=== PATIENT | male | born 1990 | race Caucasian/White ===

== ENCOUNTER 2017-06-04 14:43 | Emergency (ER) | payer SELFPAY ==
[2017-06-04 15:21] VITALS: BP 122/73; PULSE 87; TEMP 98.7; BMI 26.6
--- NOTE | 2017-06-04 15:26 | PDOC ---
Rapid Medical Evaluation Chief Complaint: Injury Time Seen by Provider: 06/04/17 15:20 Medical Evaluation: Allergies Allergy/AdvReac Type Severity Reaction Status Date / Time No Known Allergies Allergy Verified 06/04/17 15:16 Vital Signs Temp Pulse Resp BP Pulse Ox 98.7 F 87 18 122/73 97 06/04/17 15:16 06/04/17 15:16 06/04/17 15:16 06/04/17 15:16 06/04/17 15:16 06/04/17 15:21 pt c/o : rt 5th digit lacaeration. tdap last year Pt on exam: avulsed finger tip Pt ordered for : finger xray Pt to proceed to the ED Discharge Disposition - Diagnosis Finger injury - Referrals - Patient Instructions - Post Discharge Activity
[2017-06-04] MEDS ORDERED: DIPHTH,PERTUSS(ACELL),TET 0.5 ML DISP.SYRIN IM ONE (16:08)
--- NOTE | 2017-06-04 16:32 | PDOC ---
History of Present Illness - General Chief Complaint: Injury Stated Complaint: LEFT INJURY Time Seen by Provider: 06/04/17 15:20 History Source: Patient Exam Limitations: No Limitations - History of Present Illness Initial Comments: 06/04/17 16:24 crushed finger at work no deformity, has avulsed skin right 5th digit, FROM Occurred: reports: just prior to arrival Past History - Past Medical History Allergies/Adverse Reactions: Allergies Allergy/AdvReac Type Severity Reaction Status Date / Time No Known Allergies Allergy Verified 06/04/17 15:16 Home Medications: Ambulatory Orders NK [No Known Home Medication] 02/24/16 COPD: No - Immunization History Immunization Up to Date: Yes - Suicide/Smoking/Psychosocial Hx Smoking History: Never smoked Hx Alcohol Use: No Drug/Substance Use Hx: No Substance Use Type: None Review of Systems - Review of Systems Able to Perform ROS?: Yes Is the patient limited Turkmen proficient: No Constitutional: No: Symptoms Reported HEENTM: No: Symptoms Reported Respiratory: No: Symptoms reported Cardiac (ROS): No: Symptoms Reported ABD/GI: No: Symptoms Reported *Physical Exam - Vital Signs Last Vital Signs Temp Pulse Resp BP Pulse Ox 98.7 F 87 18 122/73 97 06/04/17 15:16 06/04/17 15:16 06/04/17 15:16 06/04/17 15:16 06/04/17 15:16 - Physical Exam General Appearance: Yes: Nourished, Appropriately Dressed HEENT: positive: EOMI, FAWAD Cardiovascular: positive: Regular Rhythm, Regular Rate Musculoskeletal: positive: Normal Inspection Extremity: positive: Normal Range of Motion, Other (right 5th digit with avulsion to the pad of the finger , nv intact nail is intact FROM ) Integumentary: positive: Normal Color, Dry, Warm Neurologic: positive: Fully Oriented, Alert, Normal Mood/Affect, Normal Response , Motor Strength 5/5 Procedures - Laceration/Wound Repair Right 5th digit Wound Length: 2.6 to 5.0 cm (avulsion) Wound Explored: clean Wound's Depth, Shape: irregular Irrigated w/ Saline: Yes Betadine Prep: Yes Sterile Dressing Applied: Yes (xeroform, bulky gauze, bacitracin ) Splint Applied: No ED Treatment Course - Medications Given in the ED: ED Medications Discontinued Medications Generic Name Dose Route Start Last Admin Trade Name Freq PRN Reason Stop Dose Admin Diphtheria/Tetanus/Acell Pertussis 0.5 ml 06/04/17 16:08 06/04/17 16:16 Boostrix - IM 06/04/17 16:09 0.5 ml .ONCE ONE Administration Medical Decision Making - Medical Decision Making 06/04/17 16:38 cc: finger injury nail intact FROM xray is negative read by radiologist tetanus updated wound care done pt understands the follow up procedures all questions asked and answered *DC/Admit/Observation/Transfer Diagnosis at time of Disposition: Finger injury Qualifiers: Encounter type: initial encounter Laterality: right Qualified Code(s): S69.91XA - Unspecified injury of right wrist, hand and finger(s), initial encounter - Referrals - Patient Instructions Additional Instructions: return in 2 days for a wound check June 06 keep the finger dry do not remove the dressing take motrin 600mg every 8hrs for pain (over the counter advil, motrin or ibuprofen) regresa en 2 [place] para un chequeo de heridas el mantener el dedo seco, no quitar el aderezo adria motrin 600 mg cada 8 horas para el dolor (advil, motrin o ibuprofeno) Print Language: KHMER - Post Discharge Activity
== END 2017-06-04 16:49 | disposition home or self-care (01) ==
LOC: JERFT 14:43
PROC: 3E0234Z Introduction of Serum, Toxoid and Vaccine into Muscle, Percutaneous Approach (ICD-10-PCS; principal; 2017-06-04)
DX: S67.196A Crushing injury of right little finger, initial encounter (principal); S61.216A Laceration without foreign body of right little finger without damage to nail, initial encounter; X58.XXXA Exposure to other specified factors, initial encounter; Y93.89 Activity, other specified; Y92.89 Other specified places as the place of occurrence of the external cause; Y99.0 Civilian activity done for income or pay
CPT/HCPCS: 73140-TC-RT; 90715; 99281-25